=== PATIENT | male | born 1990 ===

== ENCOUNTER 2016-07-26 09:01 | Emergency (ER) | payer BC ==
--- NOTE | 2016-07-26 13:34 | UC ---
Medardo Wilder Karl, scribed for Sandra Alberts DO on 07/26/16 at 1056 . Cardiac HPI - HPI Summary HPI Summary: Pt is a 25 y/o male that presents to [facility] c/o intermittent left sided CP for the past 2 weeks. Pt described the pain as a dull/aching pain. Pt stated that the pain at its worst was a 4/10 this morning when he woke up but it is normally at a 2/10. Pt stated that his pain is aggravated by sitting for prolonged amounts of time. Pt reported that exercise temporarily alleviates the pain. Pt also noted that he has been eating pizza and drinking a few beers several times a week for the past 3-4 months. Pt denied SOB, fever, chills, vomiting, nausea, dizziness, left neck/jaw/arm pain. - History of Current Complaint Chief Complaint: UCChestPain Stated Complaint: CHEST PAIN Time Seen by Provider: 07/26/16 10:26 Hx Obtained From: Patient Onset/Duration: Gradual Onset, Lasting Weeks, Still Present Timing: Intermittent Episodes Lasting: Initial Severity: Mild Current Severity: Mild Pain Intensity: 4 - 0-10 numeric scale Chest Pain Location: Left Anterior Character: Dull/Aching Aggravating: Rest Alleviating: Exertion Associated Signs & Symptoms: Positive: Chest Pain. Negative: Anxiety, Recent Stress, Numbness, Dizziness, SOB, Diaphoresis, Nausea/Vomiting, Cough, Abdominal Pain PMH/Surg Hx/FS Hx/Imm Hx Previously Healthy: Yes - Surgical History Surgical History: None - Family History Known Family History: Negative: Cardiac Disease, Hypertension, Diabetes - Social History Occupation: Employed Full-time Alcohol Use: Weekly - 4-5 times a week Alcohol Amount: 2-3 beers a night Substance Use Type: None Smoking Status (MU): Never Smoked Tobacco Review of Systems Constitutional: Negative Skin: Negative Eyes: Negative ENT: Negative Respiratory: Negative Cardiovascular: Chest Pain Gastrointestinal: Negative Genitourinary: Negative Motor: Negative Neurovascular: Negative Musculoskeletal: Negative Neurological: Negative Psychological: Negative All Other Systems Reviewed And Are Negative: Yes Physical Exam Triage Information Reviewed: Yes Appearance: Well-Appearing, No Pain Distress, Well-Nourished Vital Signs: Initial Vital Signs Temp 97.9 F 07/26/16 09:09 Pulse 72 07/26/16 09:09 Resp 16 07/26/16 09:09 BP 129/73 07/26/16 09:09 Pulse Ox 97 07/26/16 09:09 Vital Signs Reviewed: Yes Eyes: Positive: Conjunctiva Clear. Negative: Discharge ENT: Positive: Hearing grossly normal. Negative: Muffled/hoarse voice Neck exam: Normal Neck: Positive: Supple Respiratory: Positive: Chest non-tender, Lungs clear, Normal breath sounds, No respiratory distress Cardiovascular: Positive: RRR, No Murmur Musculoskeletal Exam: Normal Neurological: Positive: Alert, Muscle Tone Normal Psychological Exam: Normal Psychological: Positive: Age Appropriate Behavior Skin Exam: Normal - warm, dry, normal color Diagnostics - EKG Cardiac Rate: NL - at 75 bpm Cardiac Rhythm: Sinus: Normal - No ST changes ST Segment: Normal - Differential Diagnoses - Chest Pain Differential Diagnosis/HQI/PQRI: Chest Wall, GI Disease - Clinical Impression Provider Diagnoses: gerd Discharge - Discharge Plan Condition: Stable Disposition: HOME Patient Education Materials: Chest Pain (ED), Gastroesophageal Reflux Disease ( ED) Additional Instructions: TRY CUT OUT THE PIZZA AND BEER FOR A COUPLE OF WEEKS AND SEE IF THAT AFFECTS YOUR SYMPTOMS. FOLLOW-UP CARE: You should establish with a private physician for follow-up care IN 4-7 DAYS. If you are unable to get a timely appointment, or if you are worsening, call us or return for re-evaluation. An additional resource available to assist in finding the appropriate physician for your health care needs is the [facility]. You may contact them by calling [phone]. The documentation as recorded by the Medardo lovelace Karl accurately reflects the service I personally performed and the decisions made by , Sandra Alberts DO.
== END 2016-07-26 11:44 | disposition home or self-care (01) ==
LOC: UCEAST 09:01
DX: K21.9 Gastro-esophageal reflux disease without esophagitis (principal)
CPT/HCPCS: 93005; 99202; G0463